=== PATIENT | female | born 1990 | race Hispanic/Latino ===

== ENCOUNTER 2020-03-23 23:03 | Emergency (ER) | payer OTHER ==
--- NOTE | 2020-03-24 08:57 | CT ---
PRELIMINARY REPORT/[facility]/EMERGENCY AFTER HOURS PROCEDURE EXAM: CT Temporal Bones Without Intravenous Contrast. CLINICAL HISTORY: R EAR PAIN FOR 4 DAYS - STATES SHE WENT TO PCP FOR THIS AND WAS GIVEN EAR DROPS, THESE HAVE NOT HELPE D. This is a scan for the internal auditory canals/ Rule out mastoiditis TECHNIQUE: Axial computed tomography images of the temporal bones without intravenous contrast. CONTRAST: Without COMPARISON: None provided. FINDINGS: RIGHT OSSICLES AND MIDDLE EAR: The ossicles are intact. Minimal fluid in the middle ear. RIGHT COCHLEA: Normal 2-1/2 turns. RIGHT VESTIBULE: Unremarkable. RIGHT SEMICIRCULAR CANALS: No dehiscence. RIGHT VESTIBULAR AND COCHLEAR AQUEDUCTS: No enlargement. RIGHT FACIAL NERVE CANAL: No widening. RIGHT INTERNAL AUDITORY CANAL: No enlargement. RIGHT EXTERNAL AUDITORY CANAL: There is soft tissue swelling along the external auditory canal consistent with otitis externa. RIGHT CAROTID CANAL: No aberrancy. RIGHT JUGULAR FORAMEN: No enlargement. RIGHT MASTOID AIR CELLS: Mild sclerosis consistent with chronic mastoiditis. RIGHT TEMPOROMANDIBULAR JOINT: No dislocation. LEFT OSSICLES AND MIDDLE EAR: The ossicles are intact. No middle ear fluid. LEFT COCHLEA: Normal 2-1/2 turns. LEFT VESTIBULE: Unremarkable. LEFT SEMICIRCULAR CANALS: No dehiscence. LEFT VESTIBULAR AND COCHLEAR AQUEDUCTS: No enlargement. LEFT FACIAL NERVE CANAL: No widening. LEFT INTERNAL AUDITORY CANAL: No enlargement. LEFT EXTERNAL AUDITORY CANAL: Minimal swelling of the soft tissues in the external auditory canal with no obstruction. LEFT CAROTID CANAL: No aberrancy. LEFT JUGULAR FORAMEN: No enlargement. LEFT MASTOID AIR CELLS: Mild sclerosis and slight opacification. Chronic mastoiditis.. LEFT TEMPOROMANDIBULAR JOINT: No dislocation. BONES: No acute osseous abnormality. VISUALIZED PARANASAL SINUSES: Clear. PERIAURICULAR SOFT TISSUES: Unremarkable. IMPRESSION: There is moderate right otitis externa and mild right otitis media. Slight swelling of the soft tissues of the left external auditory canal may represent mild left otiti s externa Bilateral chronic mastoiditis. ELECTRONICALLY SIGNED BY: Yael Olguin DO Mar 24, 2020 12:29:50 AM [employer] This report is intended for review by the ordering physician only, in accordance of law. If you recei ve this report in error, please call [facility] at [phone]. FINAL REPORT Exam: CT IAC/temporal bone HISTORY: Right ear pain x4 days. FINDINGS: Visualized brain parenchyma is unremarkable. Visualized paranasal sinuses demonstrate overall appropriate enhancement. Right IAC/temporal bones: Inner ear structures are normal. Ossicular chain is intact. There is abnorm al hypoattenuation in the epitympanum including Prussak's space. There is mild blunting of the scutum. Tegmen tympani and tegmen mastoideum are preserved. There is partial opacification of the rig ht mastoid air cells. There is thickening and retraction of the tympanic membrane. Abnormal soft tissue density in the external auditory canal. Left IAC/temporal bones: Inner ear structures are normal. Ossicular chain is intact. Adequate aeratio n of the middle ear. Partial opacification of the mastoid air cells. Tegmen tympani and tegmen mastoideum are preserved. Mild mucosal thickening of the left external auditory canal. Mild retractio n of the tympanic membrane. IMPRESSION: 1. This report is in agreement with initial report by [facility]. 2. There is evidence of right-sided otomastoiditis as well as otitis externa. 3. Mild soft tissue thickening of the left external auditory canal suggesting mild left sided otitis externa. 4. Mild thickening and retraction of bilateral tympanic membranes. 5. Abnormal soft tissue density in right Prussak's space with mild blunting of the scutum. Transcribed Date/Time: 03/24/2020 9:09 AM
== END 2020-03-24 01:00 | disposition home or self-care (01) ==
LOC: ERS 23:03
DX: H60.21 Malignant otitis externa, right ear (principal); H66.91 Otitis media, unspecified, right ear
CPT/HCPCS: 36416; 70480